=== PATIENT | male | born 1960 | race Caucasian/White ===

== ENCOUNTER 2016-12-11 12:05 | Day surgery (SDC) | payer OTHER ==
[~2016-12-11] VITALS: Ht 182.9 cm; Wt 127.0 kg
[~2016-12-11 12:05] MED LIST: Habitrol,Nicoderm CQ TD; LASIX40 MG PO; LEVEMIR FL100 UNIT/1 SC; LEVEMIR100 UNIT/2 SC; LISINOPRIL10 MG PO; Lasix IV; Lopressor PO; METOPROLOL TART50 MG PO; NOHOMEMEDS; NOVOLOG PE100 UNITS/ SC; NYSTATIN15 GM TP; PERCOCET 5/31 TABLET PO; PRAVASTATIN SOD80 MG PO; PROVENTIL,2.5 MG/3 M IH; TYLENOL EXTRA500 MG PO; ZESTRIL,PRINIVI10 M1 PO; Zithromax PO
[2016-12-11 12:34] LABS: POINT-OF-CARE METER ID UU14174212
[2016-12-11 13:39] LABS: ALKALINE PHOSPHATASE 67 IU/L (3-129); ANION GAP 11 MEQ/L (2-14); CHLORIDE 107 MEQ/L (99-109); GFR ESTIMATE (CALCULATED) > 59 mL/min/; GLUCOSE 98 mg/dL (70-99); SAMPLE HEMOLYSIS CHECK 0; SAMPLE ICTERIC CHECK 0; SAMPLE LIPEMIA CHECK 0; SODIUM 141 MEQ/L (136-147); TOTAL BILIRUBIN 0.4 MG/DL (0.0-1.0); UREA NITROGEN (BUN) 24 mg/dL (9-23)
== END 2016-12-11 14:10 | disposition home or self-care (01) ==
LOC: PAIN 12:05 → SDC 13:45 → PAIN 14:10
PROVIDERS: Anesthesiology Pain Medicine
PROC: 3E0X33Z Introduction of Anti-inflammatory into Cranial Nerves, Percutaneous Approach (ICD-10-PCS; principal; 2016-12-11)
DX: M54.16 Radiculopathy, lumbar region (principal); F41.9 Anxiety disorder, unspecified; G89.29 Other chronic pain; F17.200 Nicotine dependence, unspecified, uncomplicated; M79.1 Myalgia; I11.0 Hypertensive heart disease with heart failure; I50.9 Heart failure, unspecified; E11.9 Type 2 diabetes mellitus without complications; Z79.82 Long term (current) use of aspirin; Z68.39 Body mass index [BMI] 39.0-39.9, adult
CPT/HCPCS: 80053; 82948; J1100; J2250; J3010

== ENCOUNTER 2017-04-02 10:37 | Day surgery (SDC) | payer OTHER ==
[~2017-04-02] VITALS: Ht 182.9 cm; Wt 129.3 kg
[~2017-04-02 10:37] MED LIST changes: +NAPROSYN500 MG PO; +NEURONTIN300 MG PO
[2017-04-02 11:37] LABS: POINT-OF-CARE METER ID UU13113694
== END 2017-04-02 11:55 | disposition home or self-care (01) ==
LOC: PAIN 10:37
PROVIDERS: Anesthesiology Pain Medicine
DX: M47.26 Other spondylosis with radiculopathy, lumbar region (principal); M79.1 Myalgia; I10 Essential (primary) hypertension; E11.9 Type 2 diabetes mellitus without complications; F17.210 Nicotine dependence, cigarettes, uncomplicated; Z79.82 Long term (current) use of aspirin; Z79.891 Long term (current) use of opiate analgesic
CPT/HCPCS: 82948; J1100; J2250; J3010

== ENCOUNTER 2017-05-11 08:48 | Day surgery (SDC) | payer OTHER ==
[~2017-05-11] VITALS: Ht 182.9 cm; Wt 129.3 kg
[2017-05-11 09:55] LABS: POINT-OF-CARE METER ID UU14174212
== END 2017-05-11 11:05 | disposition home or self-care (01) ==
LOC: PAIN 08:48 → SDC 09:15 → PAIN 09:15
PROVIDERS: Anesthesiology Pain Medicine
DX: M47.26 Other spondylosis with radiculopathy, lumbar region (principal); M54.5 Low back pain; M79.1 Myalgia; I10 Essential (primary) hypertension; E11.9 Type 2 diabetes mellitus without complications; F17.200 Nicotine dependence, unspecified, uncomplicated; Z79.82 Long term (current) use of aspirin; Z79.891 Long term (current) use of opiate analgesic
CPT/HCPCS: 82948; J1030; J2250; J3010; S0020

== ENCOUNTER 2017-11-14 18:39 | Emergency (ER) | payer OTHER ==
[~2017-11-14] VITALS: Ht 180.3 cm; Wt 116.6 kg
[~2017-11-14 18:39] MED LIST changes: -PERCOCET 5/31 TABLET PO; +PERCOCET 7.51 TABLET PO
[2017-11-14 19:34] LABS: HEMATOCRIT 42.7 % (38.0-50.0); HEMOGLOBIN 15.3 G/DL (12.5-16.6); MCH 29.5 PG (29.0-34.0); MCHC 35.8 G/DL (30.0-36.0); MCV 82.4 FL (86-99); PLATELET COUNT 236 K/uL (156-360); RBC DIS.WIDTH-CV 12.6 % (11.8-14.6); RED BLOOD COUNT 5.18 M/uL (4.00-5.50); WHITE BLOOD COUNT 8.2 K/uL (4.1-10.2)
[2017-11-14 19:39] LABS: APPEARANCE CLEAR ((CLEAR)); BILIRUBIN NEGATIVE; BLOOD NEGATIVE; COLOR STRAW ((YELLOW)); GLUCOSE (STRIP) >=500; KETONES 20; LEUKOCYTES NEGATIVE; NITRITE NEGATIVE; PROTEIN (STRIP) NEGATIVE; SPECIFIC GRAVITY 1.027 (1.000-1.030); UCUL ADDED? NO; UROBILINOGEN 0.2 MG/DL (0.2-1.0)
[2017-11-14 19:48] LABS: ALBUMIN 3.9 g/dL (3.2-4.8); CHLORIDE 103 mEq/L (99-109); POTASSIUM 4.7 mEq/L (3.7-5.4); SODIUM 132 mEq/L (136-147)
[2017-11-14 19:50] LABS: TOTAL PROTEIN 7.5 g/dL (6.4-8.3)
[2017-11-14 19:52] LABS: GLUCOSE 569 mg/dL (70-99); TOTAL BILIRUBIN 0.2 mg/dL (0.0-1.0)
[2017-11-14 19:54] LABS: ALKALINE PHOSPHATASE 106 IU/L (3-129); CREATININE 1.3 mg/dL (0.6-1.3); GFR ESTIMATE (CALCULATED) > 59 mL/min/ (58.99-99999)
[2017-11-14 19:55] LABS: UREA NITROGEN (BUN) 26 mg/dL (9-23)
[2017-11-14 19:56] LABS: AST (GOT) 21 IU/L (2-34)
[2017-11-14 19:57] LABS: ALT (GPT) 28 IU/L (3-49)
[2017-11-14 20:37] LABS: CARBON DIOXIDE (BICARBONATE) 20.8 MEQ/L (20-31)
[2017-11-14 20:52] VITALS: BP 139/90
[2017-11-14] MEDS ORDERED: HUMALOG100 UNIT/1 SC (21:55)
[2017-11-16] MEDS ORDERED: LO-DOSE ASPIRIN81 M1 PO (12:43)
[2017-11-16] MEDS ORDERED: HUMALOG100 UNIT/1 SC (12:46)
[2017-11-16] MEDS ORDERED: ZANAFLEX2 MG PO (12:48)
== END 2017-11-14 22:38 | disposition home or self-care (01) ==
LOC: EME 18:39
PROVIDERS: Emergency Medicine
DX: E11.65 Type 2 diabetes mellitus with hyperglycemia (principal); Z79.4 Long term (current) use of insulin; Z87.442 Personal history of urinary calculi; I50.9 Heart failure, unspecified; F17.200 Nicotine dependence, unspecified, uncomplicated; Z79.891 Long term (current) use of opiate analgesic
CPT/HCPCS: 80053; 81003; 82010; 82803; 82948; 85027; 99281; 99284; J7030

== ENCOUNTER 2017-11-17 09:38 | Day surgery (SDC) | payer OTHER ==
[~2017-11-17] VITALS: Ht 180.3 cm; Wt 117.0 kg
[~2017-11-17 09:38] MED LIST changes: +HUMALOG100 UNIT/1 SC; +LO-DOSE ASPIRIN81 M1 PO; +ZANAFLEX2 MG PO
== END 2017-11-17 10:00 | disposition home or self-care (01) ==
LOC: PAIN 09:38
PROVIDERS: Anesthesiology Pain Medicine
DX: M54.5 Low back pain (principal); Z53.09 Procedure and treatment not carried out because of other contraindication; E11.65 Type 2 diabetes mellitus with hyperglycemia
CPT/HCPCS: 82948; J1030; J2250; J3010; S0020

== ENCOUNTER 2018-04-19 12:23 | Day surgery (SDC) | payer OTHER ==
[~2018-04-19] VITALS: Ht 180.3 cm; Wt 117.9 kg
[~2018-04-19 12:23] MED LIST changes: +LEVAQUIN500 MG PO
== END 2018-04-19 14:10 | disposition home or self-care (01) ==
LOC: PAIN 12:23 → SDC 13:00 → PAIN 14:10
PROVIDERS: Anesthesiology Pain Medicine
PROC: 3E0T33Z Introduction of Anti-inflammatory into Peripheral Nerves and Plexi, Percutaneous Approach (ICD-10-PCS; principal; 2018-04-19)
PROC: 3E0T3BZ Introduction of Anesthetic Agent into Peripheral Nerves and Plexi, Percutaneous Approach (ICD-10-PCS; principal; 2018-04-19)
PROC: BR161ZZ Fluoroscopy of Lumbar Facet Joint(s) using Low Osmolar Contrast (ICD-10-PCS; principal; 2018-04-19)
DX: M47.816 Spondylosis without myelopathy or radiculopathy, lumbar region (principal); M54.16 Radiculopathy, lumbar region; M79.1 Myalgia; G89.29 Other chronic pain; E66.01 Morbid (severe) obesity due to excess calories; Z68.36 Body mass index [BMI] 36.0-36.9, adult; F17.200 Nicotine dependence, unspecified, uncomplicated
CPT/HCPCS: 82948; J1030; S0020